=== PATIENT | female | born 1990 | race Two or more races ===

== ENCOUNTER 2024-03-05 20:57 | Emergency (ER) | payer MEDICAID, OTHER ==
[~2024-03-05] VITALS: Ht 154.9 cm; Wt 56.4 kg
[2024-03-05 21:06] VITALS: BP 122/84; RESP 16; O2SAT 96
[2024-03-05 21:07] VITALS: PULSE 105
[2024-03-05] MEDS: ACETAMINOPHEN 500 MG TAB PO ONE (22:53)
== END 2024-03-05 23:11 | disposition home or self-care (01) ==
LOC: ER 20:57
DX: O9A.219 Injury, poisoning and certain other consequences of external causes complicating pregnancy, unspecified trimester (principal); S16.1XXA Strain of muscle, fascia and tendon at neck level, initial encounter; Z3A.00 Weeks of gestation of pregnancy not specified; X58.XXXA Exposure to other specified factors, initial encounter; Y93.89 Activity, other specified; Y92.89 Other specified places as the place of occurrence of the external cause; Y99.8 Other external cause status
CPT/HCPCS: 93005